=== PATIENT | male | born 1965 | race Caucasian/White ===

== ENCOUNTER 2016-10-29 10:34 | Emergency (ER) | payer MEDICAID ==
[2016-10-29 10:39] VITALS: RESP 16; TEMP 98.4; O2SAT 95
--- NOTE | 2016-10-29 12:51 | EDPHY ---
H & P Time Seen by Provider: 10/29/16 12:05 HPI/ROS: CHIEF COMPLAINT: Back pain HISTORY OF PRESENT ILLNESS: 51-year-old male presents to the emergency department complaining of muscular spasms in his low back. The patient has a history of chronic back pain states that he gets this same pain intermittently. He denies any known trauma or injury. He thinks that he may have just overdone it. He has pain especially with movement. He denies radicular symptoms in his legs. Denies chest pain or difficulty breathing. Denies abdominal pain. REVIEW OF SYSTEMS: Constitutional: No fever, no chills. Eyes: No double or blurry vision. ENT: No sore throat. Respiratory: No cough, no shortness of breath. Cardiac: No chest pain. Gastrointestinal: No abdominal pain, vomiting or diarrhea. Genitourinary: No dysuria. Musculoskeletal: Back pain as above. No neck pain Skin: No rashes. Neurological: No headache. Past Medical/Surgical History: Substance abuse, chronic back pain Social History: Currently staying in a custodial house Smoking Status: Current every day smoker Physical Exam: General Appearance: Alert, no distress. Eyes: Pupils equal and round. Extraocular motions are all intact. ENT: Mouth: Mucous membranes moist. Respiratory: No wheezing, rhonchi, or rales, lungs are clear to auscultation. Cardiovascular: Regular rate and rhythm. Gastrointestinal: Abdomen is soft and nontender, no masses, no rebound or guarding, bowel sounds normal. Neurological: Alert and oriented x 3, cranial nerves II through XII grossly intact Skin: Warm and dry, no rashes. Musculoskeletal: Nontender to palpate along the cervical, thoracic or lumbar spine. Neck is supple. Extremities: Full range of motion and no peripheral edema. Straight leg raise is negative bilaterally. Reflexes are 2+ and equal for lower extremities bilaterally. Psychiatric: Patient is oriented X 3, there is no agitation. Constitutional: Initial Vital Signs Temperature (C) 36.9 C 10/29/16 10:35 Heart Rate 76 10/29/16 10:35 Respiratory Rate 16 10/29/16 10:35 Blood Pressure 119/77 10/29/16 10:35 O2 Sat (%) 95 10/29/16 10:35 O2 Delivery Mode Room Air Allergies/Adverse Reactions: No Allergies [NKDA] Allergy (Verified 05/17/13 21:16) Home Medications: Medication Instructions Recorded Cyclobenzaprine [Flexeril] 10 mg PO TIDPRN PRN #12 tab 10/29/16 Medical Decision Making ED Course/Re-evaluation: I do not think imaging studies are indicated. The patient is requesting muscle relaxer. Was given prescription for Flexeril. Patient was also given primary care referral. He was instructed to return if he developed footdrop, bowel or bladder incontinence or any other concerns Differential Diagnosis: Back pain including but not limited to muscular pain, herniated disc, spine fracture, intra-abdominal causes and urinary tract infection. Departure - Departure Disposition: Home, Routine, Self-Care Clinical Impression: Back pain Qualifiers: Back pain location: low back pain Chronicity: acute Back pain laterality: unspecified Sciatica presence: without sciatica Qualified Code(s): M54.5 - Low back pain Condition: Good Instructions: Low Back Strain (ED), Acute Low Back Pain (ED) Additional Instructions: Ibuprofen 600 mg every 8 hours as needed for pain. Flexeril as needed for muscular spasm. Return to the emergency department if you develop weakness in your lower legs, numbness or tingling in your lower legs, bowel or bladder incontinence, or any other concerns. Referrals: Radha Linton MD [Medical Doctor] - 2-3 days, call for appt. (Primary care provider corrections lieutenant) Prescriptions: Cyclobenzaprine [Flexeril] 10 mg PO TIDPRN PRN #12 tab PRN Reason: spasms
[2016-10-29 13:10] VITALS: BP 132/74; PULSE 72
== END 2016-10-29 13:10 | disposition home or self-care (01) ==
DX: M54.5 Low back pain (principal); F17.200 Nicotine dependence, unspecified, uncomplicated

== ENCOUNTER 2017-02-21 14:46 | Emergency (ER) | payer MEDICAID ==
--- NOTE | 2017-02-21 14:53 | CPEKG ---
Heart Rate: 87 RR Interval: 690 P-R Interval: 156 QRSD Interval: 76 QT Interval: 368 QTC Interval: 443 P Clancy: 65 QRS Clancy: 46 T Wave Clancy: 24 EKG Severity - NORMAL ECG - EKG Impression: SINUS RHYTHM Electronically Signed By: Priyanka Curtis 21-Feb-2017 21:20:58
[2017-02-21 14:55] VITALS: BP 130/89; PULSE 86; RESP 18; TEMP 98.2; O2SAT 95
[2017-02-21] MEDS ORDERED: NS 500 ML IV ONE (15:01)
--- NOTE | 2017-02-21 15:01 | EDPHY ---
H & P Time Seen by Provider: 02/21/17 14:54 HPI/ROS: CHIEF COMPLAINT: Chest pain HISTORY OF PRESENT ILLNESS: The patient is a 52-year-old male who presents emergency department with left-sided chest pain. The patient states he has had a mild cough that is nonproductive for the past few days. He has also had fevers or chills. He reports using methamphetamine earlier this week. Today, approximately 45 min ago, he developed left-sided chest pain appears was sharp. It radiated to his left armpit. It lasted for 5-10 minutes and then resolved. He has had no leg pain or swelling. No recent travel. No nausea or vomiting. No diaphoresis. His pain is now resolved. REVIEW OF SYSTEMS: My complete review of systems is negative except as mentioned in the HPI. Past Medical/Surgical History: Denies Past surgical history: Includes tracheal surgery Social history: The patient smokes cigarettes. He reports using meth earlier this week. He denies other drug use. He denies alcohol. Smoking Status: Current every day smoker Physical Exam: Vitals noted. Heart rate 100. GENERAL: Well-appearing, in no acute distress, alert. HEENT: Eyes normal to inspection, normal pharynx, no signs of dehydration. NECK: No thyromegaly, no lymphadenopathy, supple. RESPIRATORY: Clear to auscultation bilaterally, no rales, rhonchi or wheezing. CVS: Regular rate and rhythm, no rubs, murmurs, or gallops. ABDOMEN: Soft, nontender, nondistended, no organomegaly. BACK: Normal to inspection, no CVA tenderness. SKIN: Normal color, no rash, warm, dry. No pallor. EXTREMITIES: No pedal edema, no calf tenderness, no Homans sign or cords, no joint swelling. NEURO/PSYCH: Alert and oriented x3, normal mood and affect, normal motor sensory exam. No obvious cranial nerve deficit. Constitutional: Initial Vital Signs Temperature (C) 36.8 C 02/21/17 14:54 Heart Rate 86 02/21/17 14:54 Respiratory Rate 18 02/21/17 14:54 Blood Pressure 130/89 H 02/21/17 14:54 O2 Sat (%) 95 02/21/17 14:54 O2 Delivery Mode Room Air Allergies/Adverse Reactions: No Allergies [NKDA] Allergy (Verified 05/17/13 21:16) Home Medications: Medication Instructions Recorded Cyclobenzaprine [Flexeril] 10 mg PO TIDPRN PRN #12 tab 10/29/16 Medical Decision Making - Diagnostics Imaging Results: Imaging Impressions Chest X-Ray 02/21/17 15:01 Impression: Is negative for acute cardiopulmonary abnormality. The stomach is distended.. ED Course/Re-evaluation: In the emergency department discussed possible etiologies with the patient. I answered all his questions. IV was placed. Laboratory studies, EKG and chest x -ray were ordered. Patient received aspirin EN route in the ambulance. EKG shows normal sinus rhythm, normal rate, normal axis, normal intervals. There are no ST or T-wave abnormalities. EKG is normal as interpreted by me. Patient's chemistry panel is unremarkable. CBC normal. Troponin negative. D- dimer negative. Chest x-ray: No acute disease noted. Distended stomach. I performed the heart pathway assessment form. The patient's score was 2. He was a repeat troponin in 3 hr. I discussed the plan with the patient. I answered all his questions. 16 50: I rechecked the patient. He is lying comfortably in bed. No complaints. No chest pain. 1745: The patient did not want wait for his repeat troponin. The patient wanted to leave AMA. The patient was competent to make this decision. Differential Diagnosis: My differential includes but is not limited to ACS, acute ME, pneumothorax, hemothorax, pericarditis, myocarditis, pulmonary embolus, pulmonary infarct, pneumonia, bronchitis, influenza - Data Points Laboratory Results: Laboratory Results 02/21/17 15:05 02/21/17 15:05 02/21/17 02/21/17 02/21/17 15:25 15:05 15:05 WBC RBC Hgb Hct MCV MCH MCHC RDW Plt Count MPV Neut % (Auto) Lymph % (Auto) Mckinley % (Auto) Eos % (Auto) Baso % (Auto) Nucleat RBC Rel Count Absolute Neuts (auto) Absolute Lymphs (auto) Absolute Monos (auto) Absolute Eos (auto) Absolute Basos (auto) Absolute Nucleated RBC Immature Gran % Immature Gran # D-Dimer < 0.27 ug/mLFEU ug/mLFEU (0.00-0.50) Sodium 142 mEq/L mEq/L (134-144) Potassium 3.8 mEq/L mEq/L (3.5-5.2) Chloride 103 mEq/L mEq/L (97-110) Carbon Dioxide 25 mEq/l mEq/l (22-31) Anion Gap 14 mEq/L mEq/L (8-16) BUN 15 mg/dL mg/dL (7-23) Creatinine 1.0 mg/dL mg/dL (0.7-1.3) Estimated GFR > 60 Glucose 82 mg/dL mg/dL (70-100) Calcium 10.4 mg/dL mg/dL (8.5-10.4) Total Bilirubin 1.0 mg/dL mg/dL (0.1-1.4) Conjugated Bilirubin 0.3 mg/dL mg/dL (0.0-0.5) Unconjugated Bilirubin 0.7 mg/dL mg/dL (0.0-1.1) AST 36 IU/L IU/L (17-59) ALT 54 IU/L IU/L (21-72) Alkaline Phosphatase 96 IU/L IU/L (38-126) Troponin I < 0.012 ng/mL ng/mL (0.000-0.034) Total Protein 7.8 g/dL g/dL (6.3-8.2) Albumin 4.5 g/dL g/dL (3.5-5.0) Lipase 34 IU/L IU/L (23-300) Nasal Influenza A PCR NEGATIVE FOR FLU A (NEGATIVE) Nasal Influenza B PCR NEGATIVE FOR FLU B (NEGATIVE) 02/21/17 15:05 WBC 4.63 10^3/uL 10^3/uL (3.80-9.50) RBC 5.58 10^6/uL 10^6/uL (4.40-6.38) Hgb 17.6 g/dL H g/dL (13.7-17.5) Hct 50.5 % % (40.0-51.0) MCV 90.5 fL fL (81.5-99.8) MCH 31.5 pg pg (27.9-34.1) MCHC 34.9 g/dL g/dL (32.4-36.7) RDW 12.3 % % (11.5-15.2) Plt Count 222 10^3/uL 10^3/uL (150-400) MPV 9.7 fL fL (8.7-11.7) Neut % (Auto) 68.0 % % (39.3-74.2) Lymph % (Auto) 20.1 % % (15.0-45.0) Mckinley % (Auto) 10.4 % % (4.5-13.0) Eos % (Auto) 1.1 % % (0.6-7.6) Baso % (Auto) 0.4 % % (0.3-1.7) Nucleat RBC Rel Count 0.0 % % (0.0-0.2) Absolute Neuts (auto) 3.15 10^3/uL 10^3/uL (1.70-6.50) Absolute Lymphs (auto) 0.93 10^3/uL L 10^3/uL (1.00-3.00) Absolute Monos (auto) 0.48 10^3/uL 10^3/uL (0.30-0.80) Absolute Eos (auto) 0.05 10^3/uL 10^3/uL (0.03-0.40) Absolute Basos (auto) 0.02 10^3/uL 10^3/uL (0.02-0.10) Absolute Nucleated RBC 0.00 10^3/uL 10^3/uL (0-0.01) Immature Gran % 0.0 % % (0.0-1.1) Immature Gran # 0.00 10^3/uL 10^3/uL (0.00-0.10) D-Dimer Sodium Potassium Chloride Carbon Dioxide Anion Gap BUN Creatinine Estimated GFR Glucose Calcium Total Bilirubin Conjugated Bilirubin Unconjugated Bilirubin AST ALT Alkaline Phosphatase Troponin I Total Protein Albumin Lipase Nasal Influenza A PCR Nasal Influenza B PCR Medications Given: Discontinued Medications Sodium Chloride (Ns) 500 mls @ 1,000 mls/hr IV EDNOW ONE PRN Reason: Protocol Stop: 02/21/17 15:30 Last Admin: 02/21/17 15:21 Dose: Not Given Departure - Departure Disposition: Against Medical Advice Clinical Impression: Chest pain Qualifiers: Chest pain type: precordial pain Qualified Code(s): R07.2 - Precordial pain Condition: Good Instructions: Chest Pain (ED) Referrals: [facility] [Provider Group] - 2-3 days without fail
[2017-02-21 15:12] LABS: PLATELET COUNT 222 10^3/uL (150-400)
== END 2017-02-21 17:51 | disposition left against medical advice (07) ==
LOC: EDUNIT#
DX: R07.2 Precordial pain (principal); F17.210 Nicotine dependence, cigarettes, uncomplicated

== ENCOUNTER 2017-02-21 17:49 | Emergency (ER) | payer MEDICAID ==
[2017-02-21 17:56] VITALS: BP 126/78; PULSE 88; RESP 18; TEMP 98.2; O2SAT 95
== END 2017-02-21 18:24 | disposition left against medical advice (07) ==
DX: Z53.21 Procedure and treatment not carried out due to patient leaving prior to being seen by health care provider (principal)

== ENCOUNTER 2017-07-07 04:18 | Inpatient (IN) | payer SELFPAY ==
[2017-07-07] MEDS ORDERED: NS 2,200 ML IV ONE (05:12)
[2017-07-07] MEDS ORDERED: IPRATROPIUM/ALBUTEROL 3 ML DEYVIAL IH ONE (05:39)
--- NOTE | 2017-07-07 05:42 | CPEKG ---
Heart Rate: 111 RR Interval: 541 P-R Interval: 140 QRSD Interval: 78 QT Interval: 324 QTC Interval: 441 P Chalmers: 64 QRS Chalmers: 63 T Wave Chalmers: 60 EKG Severity - OTHERWISE NORMAL ECG - EKG Impression: SINUS TACHYCARDIA Electronically Signed By: Sinai Santillan 07-Jul-2017 08:16:24
[2017-07-07] MEDS ORDERED: ACETAMINOPHEN 325 MG TAB PO PRN (05:53)
[2017-07-07] MEDS ORDERED: ALBUTEROL 3 ML DEYVIAL IH PRN (05:53)
[2017-07-07] MEDS ORDERED: ONDANSETRON 4 MG/2 ML VIAL IVP PRN (05:53)
[2017-07-07] MEDS ORDERED: ONDANSETRON DISINTEGRATING 4 MG TAB PO PRN (05:53)
[2017-07-07 05:54] LABS: PLATELET COUNT 173 10^3/uL (150-400)
--- NOTE | 2017-07-07 05:56 | EDPHY ---
H & P Stated Complaint: R SIDED RIB PAIN, COUGH, SOB/X 2 DAYS Time Seen by Provider: 07/07/17 04:45 HPI/ROS: HPI The patient presents with 2 days of cough which is constant, worse at night, productive of an orange colored sputum. This is associated with generalized shortness of breath and right-sided chest wall pain which is sharp in nature and worse with a deep breath. The patient denies any known sick contacts. He does smoke 1 pack of cigarettes a day. He does not have any prior history of similar. He has not recently been hospitalized. He is housed.. REVIEW OF SYSTEMS Constitutional: No fever, no chills. Eyes: No discharge. ENT: No sore throat. Cardiovascular: No chest pain, no palpitations. Respiratory: See HPI Gastrointestinal: No abdominal pain, no vomiting. Genitourinary: No hematuria. Musculoskeletal: No back pain. Skin: No rashes. Neurological: No headache. PMHx: History of psychiatric disease, no primary care doctor Soc Hx: Housed, cigarette smoker PHYSICAL General Appearance: Alert, no distress Eyes: Pupils equal and round no pallor or injection ENT, Mouth: Mucous membranes moist Respiratory: There are no retractions, there are diminished breath sounds on the right with some rhonchi Cardiovascular: Tachycardic rate and regular rhythm Gastrointestinal: Abdomen is soft and non-tender, no masses, bowel sounds normal Neurological: A&O, moves all extremities Skin: Warm and dry, no rashes Musculoskeletal: Neck is supple non tender Extremities: symmetrical, full range of motion Psychiatric: Patient is oriented X 3, there is no agitation Source: Patient Exam Limitations: No limitations - Personal History Current Tetanus Diphtheria and Acellular Pertussis (TDAP): Unsure - Medical/Surgical History Hx Asthma: No Hx Chronic Respiratory Disease: No Hx Diabetes: No Hx Cardiac Disease: No Hx Renal Disease: No Hx Cirrhosis: No Hx Alcoholism: No Hx HIV/AIDS: No Hx Splenectomy or Spleen Trauma: No Other PMH: pmh- "psych issues" undiagnosed, trach, IVDA, HERNIA SX - Social History Smoking Status: Heavy smoker Constitutional: Initial Vital Signs Temperature (C) 37.3 C 07/07/17 04:24 Heart Rate 115 H 07/07/17 04:24 Respiratory Rate 26 H 07/07/17 04:24 Blood Pressure 99/69 L 07/07/17 04:24 O2 Sat (%) 91 L 07/07/17 04:24 O2 Delivery Mode Room Air O2 (L/minute) 2 Allergies/Adverse Reactions: No Allergies [NKDA] Allergy (Verified 02/21/17 17:50) Home Medications: Medication Instructions Recorded NK [No Known Home Meds] 07/07/17 Medical Decision Making - Diagnostics Imaging Results: Chest x-ray two views demonstrates dense right middle lobe opacity consistent with pneumonia, interpreted by me, radiology interpretation is pending. Imaging: I viewed and interpreted images myself Differential Diagnosis: This is a 52-year-old male with history of significant smoking who presents with cough, shortness of breath, pleuritic chest pain on the right for the last 2 days. On arrival, he is hypoxic and tachycardic, blood pressure is slightly low. As he is started on IV fluids and a nebulizer. Chest x-ray is performed and demonstrates pneumonia. He also has a leukocytosis. We will give him levofloxacin for community-acquired pneumonia. He is requiring supplemental oxygen. Lactate is elevated at 2.6, thus he is given a 30 cc/kilos fluid bolus. Have consulted with Dr. Brown of the hospitalist service and we plan to admit the patient. - Data Points Laboratory Results: Laboratory Results 07/07/17 05:30 07/07/17 05:00 07/07/17 07/07/17 07/07/17 05:30 05:30 05:30 WBC 16.53 10^3/uL H 10^3/uL (3.80-9.50) RBC 4.43 10^6/uL 10^6/uL (4.40-6.38) Hgb 14.3 g/dL g/dL (13.7-17.5) Hct 40.9 % % (40.0-51.0) MCV 92.3 fL fL (81.5-99.8) MCH 32.3 pg pg (27.9-34.1) MCHC 35.0 g/dL g/dL (32.4-36.7) RDW 12.7 % % (11.5-15.2) Plt Count 173 10^3/uL 10^3/uL (150-400) MPV 10.0 fL fL (8.7-11.7) Neut % (Auto) Not Reported Lymph % (Auto) Not Reported Carter % (Auto) Not Reported Eos % (Auto) Not Reported Baso % (Auto) Not Reported Nucleat RBC Rel Count Not Reported Absolute Neuts (auto) Not Reported Absolute Lymphs (auto) Not Reported Absolute Monos (auto) Not Reported Absolute Eos (auto) Not Reported Absolute Basos (auto) Not Reported Absolute Nucleated RBC Not Reported Immature Gran % Not Reported Seg Neutrophils % 59 % % Band Neutrophils % 43 % % Lymphocytes % 3 % % Monocytes % 4 % % Metamyelocytes % 1 % % Immature Gran # Not Reported Absolute Band Neuts 7.11 10^3/uL H 10^3/uL (0.00-0.70) Platelet Estimate ADEQUATE (ADEQ) Echinocytes 1+ H VBG Lactic Acid 2.6 mmol/L H mmol/L (0.7-2.1) Sodium Potassium Chloride Carbon Dioxide Anion Gap BUN Creatinine Estimated GFR Glucose Calcium Troponin I Procalcitonin Nasal Influenza A PCR NEGATIVE FOR FLU A (NEGATIVE) Nasal Influenza B PCR NEGATIVE FOR FLU B (NEGATIVE) 07/07/17 05:00 WBC RBC Hgb Hct MCV MCH MCHC RDW Plt Count MPV Neut % (Auto) Lymph % (Auto) Carter % (Auto) Eos % (Auto) Baso % (Auto) Nucleat RBC Rel Count Absolute Neuts (auto) Absolute Lymphs (auto) Absolute Monos (auto) Absolute Eos (auto) Absolute Basos (auto) Absolute Nucleated RBC Immature Gran % Seg Neutrophils % Band Neutrophils % Lymphocytes % Monocytes % Metamyelocytes % Immature Gran # Absolute Band Neuts Platelet Estimate Echinocytes VBG Lactic Acid Sodium 133 mEq/L L mEq/L (135-145) Potassium 4.6 mEq/L mEq/L (3.5-5.2) Chloride 94 mEq/L L mEq/L (97-110) Carbon Dioxide 24 mEq/l mEq/l (22-31) Anion Gap 15 mEq/L mEq/L (8-16) BUN 20 mg/dL mg/dL (7-23) Creatinine 1.1 mg/dL mg/dL (0.7-1.3) Estimated GFR > 60 Glucose 87 mg/dL mg/dL (70-100) Calcium 8.1 mg/dL L mg/dL (8.5-10.4) Troponin I < 0.012 ng/mL ng/mL (0.000-0.034) Procalcitonin 22.03 ng/mL H ng/mL (0.02-0.10) Nasal Influenza A PCR Nasal Influenza B PCR Medications Given: Discontinued Medications Albuterol/Ipratropium (Duoneb) 3 ml IH EDNOW ONE Stop: 07/07/17 05:40 Last Admin: 07/07/17 05:58 Dose: 3 ml Sodium Chloride (Ns) 2,200 mls @ 4,400 mls/hr 30 ml/kg infuse over 30 min ( 2200 ml) IV EDNOW ONE PRN Reason: Protocol Stop: 07/07/17 05:41 Last Admin: 07/07/17 05:35 Dose: 2,200 mls Levofloxacin/Dextrose (Levaquin 750 Mg (Premix)) 150 mls @ 100 mls/hr IV EDNOW ONE PRN Reason: Protocol Stop: 07/07/17 07:08 Last Admin: 07/07/17 05:56 Dose: 150 mls Departure - Departure Disposition: [facility] Inpatient Acute Clinical Impression: Community acquired bacterial pneumonia Sepsis Qualifiers: Sepsis type: sepsis due to unspecified organism Qualified Code(s): A41.9 - Sepsis, unspecified organism Condition: Fair
[2017-07-07] MEDS ORDERED: oxyCODONE IR 5 MG TAB PO PRN (06:14)
--- NOTE | 2017-07-07 06:55 | PDGENHP ---
History and Physical - Chief Complaint SOB - History of Present Illness 52 yo M w/ no significant PMHx p/w cough and SOB. Patient reports cough, SOB, fever, and chest pain for 2 days. He states a family member has had flu-like illness in his home but he has become much more ill than them. He has no significant PMHx and takes no medications regularly. His cough is productive of brown sputum. He is an active smoker. CXR in ED reveals dense RML infiltrate. History Information - Allergies/Home Medication List Allergies/Adverse Reactions: No Allergies [NKDA] Allergy (Verified 02/21/17 17:50) Home Medications: NK [No Known Home Meds] 07/07/17 [Last Taken Unknown] I have personally reviewed and updated: family history, medical history - Past Medical History no pertinent PMH - Surgical History Reports: hernia repair - Family History Additional family history: Asked, denies - Social History Smoking Status: Heavy smoker Review of Systems Review of Systems: ROS: 10pt was reviewed & negative except for what was stated in HPI & below Physical Exam Physical Exam: Temp Pulse Resp BP Pulse Ox 36.9 C 66 18 98/71 L 96 07/07/17 06:46 07/07/17 06:33 07/07/17 06:46 07/07/17 06:46 07/07/17 06:33 O2 (L/minute) 2 Constitutional: appears nourished, uncomfortable Eyes: PERRL, EOMI Ears, Nose, Mouth, Throat: moist mucous membranes, no oral mucosal ulcers Cardiovascular: regular rate and rhythym, no murmur, rub, or gallop Respiratory: reduced air movement, inspiratory crackles (RML/RLL), rhonchi (RML/ RLL) Gastrointestinal: normoactive bowel sounds, soft, non-tender abdomen Skin: warm, normal color Musculoskeletal: full muscle strength, no muscle tenderness Neurologic: AAOx3, CN II-XII Intact Psychiatric: interacting appropriately, not anxious Lab Data & Imaging Review 07/07/17 05:30 07/07/17 05:00 WBC 16.53 10^3/uL (3.80-9.50) H 07/07/17 05:30 RBC 4.43 10^6/uL (4.40-6.38) 07/07/17 05:30 Hgb 14.3 g/dL (13.7-17.5) 07/07/17 05:30 Hct 40.9 % (40.0-51.0) 07/07/17 05:30 MCV 92.3 fL (81.5-99.8) 07/07/17 05:30 MCH 32.3 pg (27.9-34.1) 07/07/17 05:30 MCHC 35.0 g/dL (32.4-36.7) 07/07/17 05:30 RDW 12.7 % (11.5-15.2) 07/07/17 05:30 Plt Count 173 10^3/uL (150-400) 07/07/17 05:30 VBG Lactic Acid 2.6 mmol/L (0.7-2.1) H 07/07/17 05:30 Sodium 133 mEq/L (135-145) L 07/07/17 05:00 Potassium 4.6 mEq/L (3.5-5.2) 07/07/17 05:00 Chloride 94 mEq/L (97-110) L 07/07/17 05:00 Carbon Dioxide 24 mEq/l (22-31) 07/07/17 05:00 Anion Gap 15 mEq/L (8-16) 07/07/17 05:00 BUN 20 mg/dL (7-23) 07/07/17 05:00 Creatinine 1.1 mg/dL (0.7-1.3) 07/07/17 05:00 Estimated GFR > 60 07/07/17 05:00 Glucose 87 mg/dL (70-100) 07/07/17 05:00 Calcium 8.1 mg/dL (8.5-10.4) L 07/07/17 05:00 Visualized and Interpreted Chest x-ray results: Yes Chest X-Ray results: infiltrate (RML) Visualized and Interpreted EKG results: Yes EKG Interpretation: Positive for: other (Sinus tachycardia) Assessment & Plan Assessment: 52 yo M p/w community acquired pneumonia. Plan: 1. Sepsis 2/2 CAP - Dense RML infiltrate on CXR(personally interpreted); 3/4 SIRS (HR, RR, WBC) present on admission. Lactate elevated at 2.6 and procalcitonin of 22. - S/p 2.2 L IVF - Blood cultures, sputum culture, respiratory PCR - S/p levofloxacin in ED, will continue w/ CTX/Azithro for CAP coverage - Discussed case with Dr. Santillan 2. AHRF - Mild, only requiring 2 L/min via NC to maintain sats currently. - Incentive spirometry, wean O2 as able Diet - Regular Code - Full Ppx - LMWH Dispo - Admit under observation status
[2017-07-07] MEDS: ENOXAPARIN 40 MG/0.4 ML SYR SC SCH (08:44)
--- NOTE | 2017-07-07 15:44 | HOSPPROG ---
Hospitalist Progress Note Assessment/Plan: CRITICAL CARE NOTE > 45 MINUTES BEDSIDE CRITICAL CARE TIME WITH PT TODAY Called to see pt for recurrence of hypotension and tachycardia in setting of sepsis Pt remains very symptomatic with chest pain and dyspnea, no chills, a lot of productive cough. A lot of chest pain particularly with cough Had initially some good increase in BP, decrease in pulse with abx and IVF. However now as I see him his BP again 90/66, pulse 106 in sinus tachy, still fairly tachypneic and having fevers. His 1st lactate in the ER was elevated at 2.6. A repeat lactate had not been ordered at admission. He has had one dose of levaquin this am in ER. He does have slightly decreased capillary refill of the fingers on my exam right now. On my exam now he has labored respirations, strong but tachycardic pulse, diminished breath sounds at the mid and upper right lung, no cyanosis but actually has some peripheral flushing. At this point he meets criteria for severe sepsis and has decreasing blood pressure increasing heart rate since earlier today and respirations still fairly labored. I am starting sepsis protocol he is getting some stat IV saline and I will repeat vital signs lactate and prolactin after we have given him some saline, consider further saying. I have also changed his order from starting tomorrow to starting today for his azithromycin and may consider doing the same with his Rocephin. Further assessments will be ongoing. At this time there is not an indication to begin some pressor but if I cannot get him to respond or if he worsens that could become an issue this evening Objective: Vital Signs Temp Pulse Resp BP Pulse Ox 37.8 C 108 H 28 H 93/79 L 96 07/07/17 15:20 07/07/17 15:20 07/07/17 15:20 07/07/17 15:20 07/07/17 15:20 Microbiology 07/07/17 07:41 Respiratory Panel (PCR) - Final Nasal, Sinus - Swab No Organism Detected 07/06/17 07/07/17 07/08/17 06:59 06:59 06:59 Intake Total 1999 550 Output Total 1500 Balance 2000 -950 ICD10 Worksheet Patient Problems: Problems Problem Status Onset Community acquired bacterial pneumonia Acute Sepsis Acute Cellulitis and abscess of face Acute
[2017-07-07] MEDS ORDERED: NS 1,000 ML IV ONE (15:59)
[2017-07-07] MEDS ORDERED: AZITHROMYCIN 250 MG TAB PO ONE (16:00)
[2017-07-07] MEDS: predniSONE 20 MG TAB PO SCH (16:51)
[2017-07-08] MEDS ORDERED: AZITHROMYCIN 250 MG TAB PO ONE (09:00)
[2017-07-08] MEDS: ENOXAPARIN 40 MG/0.4 ML SYR SC SCH (09:31)
[2017-07-08] MEDS: predniSONE 20 MG TAB PO SCH (09:31)
[2017-07-08 11:24] VITALS: BP 99/61
--- NOTE | 2017-07-08 12:56 | PDMN ---
Medical Necessity Medical necessity: Patient meets inpatient criteria per physician note and [facility] [place] M -160 Sepsis and Other Febrile Illness, without Focal Infection (pneumonia w/ severe sepsis; presents w/dyspnea, episodes of tachycardia and hypotension/syst B/P 90's, tachypnea; initial lactate 2.6; leukocytosis/WBC > 16,000; blood cultures positive for Strept Pneumoniae; anticipated LOS > 2 midnights for ongoing IV hydration, IV antibiotics, supplemental O2, freq nebs, p.o. .)
--- NOTE | 2017-07-08 14:06 | PDDCSUM ---
Discharge Summary Discharge Summary: DISCHARGE DIAGNOSES: -acute severe sepsis -acute right-sided pneumonia with hypoxemic respiratory failure -bacteremia with pneumococcus -substance abuse with methamphetamine -ongoing tobacco abuse HOSPITAL COURSE SUMMARY: This patient who is generally quite healthy came into the hospital with significant chest pain fevers and shortness of breath. He is found to have a right upper lobe pneumonia. While here over the 1st several hours he developed severe sepsis which was treated and he responded nicely however several hours later severe sepsis recurred. Other than respiratory failure the sepsis did not result in any organ failure, and responded well to further fluid resuscitations and ongoing antibiotic treatment. The patient recovered well with resolution of his respiratory failure, decreased pain, stabilization of his sepsis and he is now up walking in the hallways and eating well. He appears stable for discharge to home. The patient did receive significant counseling regarding his tobacco and methamphetamine use here in terms of the risks of these as well as strategies for obtaining sobriety. PENDING TEST RESULTS: None MEDICATION CHANGES: Addition of Levaquin 750 mg daily FOLLOW-UP PLAN: With primary care in approximately 1 week to 10 days Greater than 35 minutes bedside and care coordination time today
--- NOTE | 2017-07-08 15:04 | ASMTCMCOM ---
CM Note CM Note Notes: Spoke w/pt, his application for Medicaid was submitted yesterday. Pt is self pay, CM filled out the [employer] medication assistance form and had RXs filled for him. Pt is otherwise independent, he will call a cab to get home. DC Plan: Independent Date Signed: 07/08/2017 03:03 PM Electronically Signed By:Evy Perez RN
== END 2017-07-08 15:02 | disposition home or self-care (01) | DRG 871 ==
LOC: INTOOBSV 05:50 → OBSVTOIN 05:53 → F3E 06:32
PROVIDERS: ADMIT Student in an Organized Health Care Education/Training Program; ATTEND Internal Medicine
DX: A41.89 Other specified sepsis (principal); J18.9 Pneumonia, unspecified organism; J96.01 Acute respiratory failure with hypoxia; F15.10 Other stimulant abuse, uncomplicated; F17.210 Nicotine dependence, cigarettes, uncomplicated
CPT/HCPCS: J0696; J1650; J1956; J7512; J7613